=== PATIENT | female | born 2000 | race Caucasian/White ===

== ENCOUNTER 2021-05-23 15:29 | Emergency (ER) | payer OTHER, SELFPAY ==
--- NOTE | 2021-05-23 15:36 | ED.FEMALEGU ---
HPI - Female Genitourinary General Chief complaint: Urogenital-Female Stated complaint: Possible UTI Time Seen by Provider: 05/23/21 15:36 Source: patient and RN notes reviewed History of Present Illness HPI Narrative: Patient is a 21-year-old female who presents the urgent care with complaints of a possible UTI. Patient states symptoms of urinary urgency and frequency started 2 days ago. Patient denies of any dysuria, blood in the urine, abdominal pain, nausea or vomiting. Patient states she has had slight left flank pain. No other acute complaints. Patient is not taken anything [id number] for her symptoms. No acute distress noted. Patient aware of the plan of care. Some parts of this dictation were generated by voice recognition software and may contain typographical and/or grammatical inaccuracies. Related Data Home Medications Medication Instructions Recorded Confirmed drospirenone-ethinyl estradiol 1 tablet PO DAILY 05/23/21 05/23/21 [CELESTINE (28)] Allergies Allergy/AdvReac Type Severity Reaction Status Date / Time No Known Allergies Allergy Verified 05/23/21 15:43 Review of Systems Review of Systems: CONSTITUTIONAL: Denies fever, chills, or sweats. EYES: Denies visual changes, redness, or discharge. ENT: Denies rhinorrhea, congestion, sore throat, or otalgia. CARDIOVASCULAR: Denies chest pain, palpitations, or edema. RESPIRATORY: Denies cough or dyspnea. GASTROINTESTINAL: Denies abdominal pain, nausea, vomiting, or diarrhea. GENITOURINARY: Reports of urinary frequency and urgency without dysuria or hematuria. Reports of white vaginal discharge without odor SKIN: Denies rash or itching. MUSCULOSKELETAL: Reports of left-sided flank pain NEUROLOGIC: Denies headache, numbness, or weakness. All other systems reviewed are negative, except as documented in HPI. PMFSH Comments At the time of my signature, I reviewed and agree with the nursing past medical, surgical, social, and family history. There is no relevant family history pertinent to the patient complaint. Exam Narrative: GENERAL: This is a well-nourished, well-developed patient, in no apparent distress. HEAD: normocephalic, atraumatic. EYES: PERRL. Sclera clear/white. Vision is grossly intact. EARS: External ears normal NOSE: External nose normal with no obvious nasal discharge, nares without redness, no rhinorrhea. THROAT: Mucous membranes moist NECK: Neck supple CARDIOVASCULAR: Regular rate and rhythm without murmurs, gallops, or rubs. RESPIRATORY: Clear to auscultation. Breath sounds equal bilaterally. No wheezes, rales, or rhonchi. GASTROINTESTINAL: Abdomen soft, non-tender, nondistended. : Deferred exam SKIN: warm, intact with no suspicious lesions or rash, good texture and turgor. NEURO: awake, alert, and oriented to person, place and time. There were no obvious focal neurologic abnormalities. EXTREMITIES: No clubbing, cyanosis, or edema. BACK: Negative bilateral CVA tenderness Course Vital Signs Vital signs: Vital Signs Temperature 98.1 F 05/23/21 15:41 Pulse Rate 79 05/23/21 15:41 Respiratory Rate 18 05/23/21 15:41 Blood Pressure 129/80 05/23/21 15:41 Pulse Oximetry 100 05/23/21 15:41 Temperature 98.1 F 05/23/21 15:41 Pulse Rate 79 05/23/21 15:41 Respiratory Rate 18 05/23/21 15:41 Blood Pressure 129/80 05/23/21 15:41 Pulse Oximetry 100 05/23/21 15:41 Reviewed MDM - Female Genitourinary MDM Narrative Medical decision making narrative: Reviewed lab results with the patient. She is aware that urine analysis is not indicative of urinary tract infection. Due to reported vaginal discharge, will treat to cover yeast infection. Advised the patient to complete the one-time dose of Diflucan and make sure to eat and drink with medication. Increase water intake and avoid sugary and caffeinated drinks. We will culture the urine and call if antibiotics are necessary. If you develop any increase i
[2021-05-23 15:41] VITALS: BP 129/80; PULSE 79; RESP 18; TEMP 36.7; O2SAT 100
== END 2021-05-23 16:07 | disposition home or self-care (01) ==
PROVIDERS: Emergency Provider Nurse Practitioner Family
DX: B37.3 Candidiasis of vulva and vagina (principal)
CPT/HCPCS: 81003; 87086; 99203; G0463